=== PATIENT | female | born 1990 | race Two or more races ===

== ENCOUNTER 2016-03-13 11:53 | Inpatient (IN) | payer MEDICAID ==
[2016-03-13] MEDS ORDERED: Sodium Chloride 0.9% 10 ML ONE (12:28)
[2016-03-13 13:25] LABS: HEMOGLOBIN 12.6 gm/l (12.0-16.0); MEAN CELL VOLUME 91.6 fl (81.0-99.0); MEAN CORPUSCULAR HEMOGLOBIN 30.4 pg (27.0-31.0); MEAN CORPUSCULAR HGB CONC 33.2 g/dl (33.0-37.0); RED CELL DISTRIBUTION WIDTH 13.3 % (11.5-14.5)
[2016-03-13] MEDS ORDERED: DINOPROSTONE 10 MG SUP VG ONE (13:28)
[2016-03-13] MEDS ORDERED: MINERAL OIL 25 ML BOT ONE (13:31)
[2016-03-13] MEDS ORDERED: OXYTOCIN 10 UNITS/ML VIAL ONE (13:31)
[2016-03-13] MEDS ORDERED: LIDOCAINE Viscous 2% 15 ML UDCUP ONE (13:31)
[2016-03-13] MEDS ORDERED: LIDOCAINE 1% (PRES FREE) 30 ML VIAL ONE (13:31)
[2016-03-13] MEDS ORDERED: IV START KIT ONE (13:32)
[2016-03-13] MEDS ORDERED: OXYTOCIN IN LR 500 ML IV ONE (13:32)
[2016-03-13] MEDS ORDERED: LACTATED RINGERS 1,000 ML ONE (13:32)
[2016-03-13] MEDS ORDERED: PUMP TUBING ONE (13:32)
[2016-03-13 13:33] LABS: ALB/GLOB RATIO 1.1 (>1.0); ALBUMIN 3.5 gm/dL (3.5-5.7); CALCIUM 9.2 mg/dL (8.6-10.3)
--- NOTE | 2016-03-13 13:43 | PCMAN ---
OB Admission Note - History : 1 Term: 0 Livin EDC:: 03/15/16 Gestational Age (weeks): 39 Days (#/7): 5 Admit Cervical Dilation:: 0 Admit Cervical Effacement (%):: 0 Admit Station:: -3 Admit Presentaton:: vertex Membrane Status: Intact Contractions: No Heart Rate:: 140 (mod grzegorz/+accels/no decels) Status:: 1 EFW:: 7# Summary of Course:: course c/b measured size <dates at 36w, normal growth scan. Then noted to have elevated DBP at 37w and then elevated SBP/DBP today in clinic. Pt was sent over for IOL 2/2 gHTN. Pt denies AHN, vision changes, epigastric pain, or increased swelling. He had neg protein in urine at clinic. PIH labs pending, protein/cr ratio also pending. Dating Hx: LMP 06/09/15, ISSAC 03/15/15 u/s 10/28/18 19w2d, ISSAC 03/22/16, normal anatomy scan, anterior placenta/no previa u/s 02/29/16 36w3d, ISSAC 03/25/16, normal growth scan, EFW 60th percentile, JADIEL WNL Med Hx: None SHx: denies x 3 - Labs Blood Type: A (+) positive Rubella Status: Immune GBS Status: Negative Abnormal Labs: None - Review of Systems Denies AHN, vision changes, epigastric pain, swelling. Good FM, no VB, LOF, ctx - Physical Exam General: Afebrile Psych/Mental Status: Mood/Affect Appropriate, Judgment/Insight Intact Neurological: Grossly Intact, Alert HEENT: Atraumatic, EOMI Lungs: Clear to Auscultation Bilaterally, Normal Air Movement Cardiovascular: Regular Rate and Rhythm, Normal S1, Normal S2, No Murmur DTR: Patellar (L): 2+ (Brisk, Normal), Patellar (R): 2+ (Brisk, Normal) Skin: Normal Color - Problems (1) Gestational hypertension Status: Acute Code: O13.9 Assessment/Plan: 25 yo @ 39w5d, sent from clinic for IOL for gHTN. 1. Labor gHTN: BP of 154/92, 151/92 in clinic, neg proteinuria. Pt denies PIH sx. Discussed IOL with pt. Cervix was closed/long this morning in clinic. Not rechecked here, will start induction with cervidil. Reviewed sx/signs of PreE with pt who will notify her RN should any of these sx/signs occur. PIH labs drawn and pending. 2. FWB: Cat 1 3. Pain: could prefer unmedicated delivery 4. GBS neg 5. PP contraception: nexplanon 6. Peds: [facility])
[2016-03-13 14:54] LABS: CREATININE,RANDOM URINE 32 mg/dL
[2016-03-13 15:03] VITALS: BMI 32.9
--- NOTE | 2016-03-13 21:44 | PDOC36 ---
Provider Note Subject: S: Pt comfortable per RN. Had rated contractions 5/10, but now appears more comfortable. Pt denies PreE sx. O: 124-151/77-85, P 86, R 16 FHT strip reviewed: baseline 135bpm, no decels, +accels [place]: irregular, q2-5min SVE: deferred. A/P: 25 yo @ 39w5d, IOL for gHTN 1. IOL: cervidil in at 1340, plan to remove at 0140, unless any other indication prior. Will likely continue with cervical ripening with misoprostol. 2. gHTN: one mild range BP @ 1920, immediately after ambulating. Reviewed preE labs: Plt 207, AST 15, Cr 0.5, Pr/Cr: 0.16. Asx. CTM. 3. FWB: Cat 1 4. Pain: pt comfortable, not requesting medication 5. GBS neg
[2016-03-14] MEDS ORDERED: EPIDURAL PROCEDURE TRAY ONE (01:57)
[2016-03-14] MEDS ORDERED: MISOPROSTOL 25 MCG TABLET PO SCH (02:00)
[2016-03-14] MEDS ORDERED: OXYTOCIN IN LR 500 ML IV PRN (10:32)
[2016-03-14] MEDS ORDERED: LACTATED RINGERS 1,000 ML IV SCH (10:45)
--- NOTE | 2016-03-14 10:58 | PDOC36 ---
Provider Note Subject: Assumed care of pt this am at 0700. H&P reviewed. Labs reviewed. Discussed clearly reasons for IOL with patient and . Reviewed hosp course thus far with pt and RN including admission, cervidil placement and cytotec X 1. Pt. has no uc's at this time but did have some last pm with cervidil. Pt. very anxious and uncomfortable with vaginal exams in clinic and here as well. She was told by provider that she has a narrow vagina and that is why it hurts with her exams. Pt. did not tolerate well the cervidil in place with increased vaginal pain/tenderness so cytotec was given orally in the am. Currently, no AHN, vis changes, RUQ pain, new swelling. Exam performed, cervix 1/50/-3 and soft. Cat 1 FHT's previously and now. Uc's every 3-5 min and not felt. DIscussed thoroughly options for IOL including but not limited to mechanical, pit, cytotec dosing. Pt. had vomiting with cytotec and severe discomfort with vaginal exams. Given options, will try low dose pit to see if established contraction pattern will help with cervical ripening. IF after 4 hours or so, pt. not responding to pit with regular pattern and cervical change, will stop pit and re evaluate for other options. BP's stable, pro/cr wnl.
--- NOTE | 2016-03-14 17:16 | PDOC36 ---
Provider Note Subject: Late entry: Re evaluated pt about 3pm. No change in cervix but good uc's with pit at 5mu. Mildly more painful as well. Will continue ripening with low dose pit until evening then recheck. Plan to stop pit if no change, eat/shower if desire then re evaluate. Cat 1 FHT's and uc's every 3-5 min at time of evaluation. VSSAF, no s/s of pre eclampsia.
[2016-03-14] MEDS ORDERED: LIDOCAINE Viscous 2% 15 ML UDCUP ONE (20:47)
[2016-03-14 22:35] LABS: BASO % 0.3 % (0.2-1.0); EOS % 0.4 % (0.9-2.9); HEMATOCRIT 37.7 % (37.0-47.0); HEMOGLOBIN 12.4 gm/l (12.0-16.0); IMM NEUT% 0.1 % (0-1); LYMPH # 1.5 (1.0-4.8); LYMPH % 21.1 % (15-45); MEAN CELL VOLUME 90.8 fl (81.0-99.0); MEAN CORPUSCULAR HEMOGLOBIN 29.9 pg (27.0-31.0); MEAN CORPUSCULAR HGB CONC 32.9 g/dl (33.0-37.0); MEAN PLATELET VOLUME 11.8 fl (7.4-10.4); MONO # 0.6 (0.0-0.8); MONO % 8.7 % (4-12); NEUT % 69.4 % (43-75); PLATELET COUNT 222 K/mm3 (130-400); RED CELL DISTRIBUTION WIDTH 13.8 % (11.5-14.5)
[2016-03-14 22:46] LABS: ALBUMIN 3.3 gm/dL (3.5-5.7); URIC ACID 6.7 mg/dL (2.3-7.6)
[2016-03-14 22:53] LABS: CREATININE,RANDOM URINE 254 mg/dL
--- NOTE | 2016-03-14 23:29 | PDOC39B ---
Hospital Course: ADMIT DATE: 03/13/16 DISCHARGE DATE: 03/14/16 Undelivered ADMISSION DIAGNOSES: term iup, gestational hypertension PROCEDURES: iol-failed HISTORY OF PRESENT ILLNESS: 25 year old G1 T0 L0 at 39 weeks 5 days presenting with gestational hypertension and for IOL. HOSPITAL COURSE: The patient presented for iOL secondary to gest hypertension. All labs were wnl. BP's on admission initially elevated then normalized in the hospital. One or two slightly elevated with ambulation but others wnl. Pt. was given cervidil, cytotec X 1 then Pit. She had no cervical change, she is still 50/-3. Pit was attempted at low dose as patient did not tolerate vaginal exams. No gutierrez, vis changes, ruq pain or new swelling. Repeat PIH labs all wnl as well. DC bp 120/70's. Discussed at length, reason for IOL, gestational htn and normal labs which were repeated and normal. Pt. had a lot of difficulty with vaginal exams as well and was hoping for spontaneous labor. Offered option of sleeping tonight then IOL tomorrow, home with IOL in 2 days. Pt. would like to go home for 48 hours then return. Discussed s/s of pre eclampsia, she can rest at home. TO return for any symptoms. Pt and in agreement. - Physical Exam General: Afebrile, No Acute Distress Psych/Mental Status: Mood/Affect Appropriate Lungs: Clear to Auscultation Bilaterally Cardiovascular: Regular Rate and Rhythm, No Murmur Fundus: Firm, Other (non tender) Genitourinary: Normal Female Genitalia, No Edema Extremities: No Edema Deep Tendon Reflexes: Bicep (L): 1+ (Slightly diminished), Bicep (R): 1+ ( Slightly diminished), Patellar (L): 1+ (Slightly diminished), Patellar (R): 1+ ( Slightly diminished) Skin: Warm, Dry, No Rash - Discharge Plan Condition: Good Disposition: Home
== END 2016-03-14 23:47 | disposition home or self-care (01) | DRG 782 ==
LOC: FBC 11:53 → EDSTATUS 03-15 11:51
PROVIDERS: ADMIT Family Medicine; ATTEND Family Medicine
PROC: 3E0P7GC Introduction of Other Therapeutic Substance into Female Reproductive, Via Natural or Artificial Opening (ICD-10-PCS; principal; 2016-03-13)
DX: O13.4 Gestational [pregnancy-induced] hypertension without significant proteinuria, complicating childbirth (principal); O61.0 Failed medical induction of labor; Z3A.39 39 weeks gestation of pregnancy

== ENCOUNTER 2016-03-17 07:53 | Outpatient (CLI) | payer MEDICAID ==
[2016-03-17 08:46] VITALS: BMI 32.1
[2016-03-17 09:13] LABS: HEMATOCRIT 36.6 % (37.0-47.0); HEMOGLOBIN 12.2 gm/l (12.0-16.0); MEAN CELL VOLUME 91.5 fl (81.0-99.0); MEAN CORPUSCULAR HEMOGLOBIN 30.5 pg (27.0-31.0); MEAN CORPUSCULAR HGB CONC 33.3 g/dl (33.0-37.0); RED CELL DISTRIBUTION WIDTH 13.3 % (11.5-14.5)
[2016-03-17 09:23] LABS: CREATININE,RANDOM URINE 25 mg/dL
[2016-03-17 09:33] LABS: ALBUMIN 3.2 gm/dL (3.5-5.7); CALCIUM 8.8 mg/dL (8.6-10.3)
== END 2016-03-17 10:47 | disposition home or self-care (01) ==
LOC: SUATTDRO 07:53 → FBCOUT 07:53 → FBC 07:58 → FBCOUT 10:47
PROVIDERS: ATTEND Family Medicine
DX: O26.899 Other specified pregnancy related conditions, unspecified trimester (principal); R03.0 Elevated blood-pressure reading, without diagnosis of hypertension; Z3A.00 Weeks of gestation of pregnancy not specified
CPT/HCPCS: 85027; 80053; 84156; 59025; 81002; G0463

== ENCOUNTER 2016-03-17 13:52 | Inpatient (IN) | payer MEDICAID ==
[2016-03-17 19:50] VITALS: BMI 32.9
[2016-03-17] MEDS ORDERED: SODIUM CHLORIDE 0.9% FLUSH 20 ML ONE (19:53)
[2016-03-17] MEDS ORDERED: LIDOCAINE 1% (PRES FREE) 30 ML VIAL ONE (19:54)
[2016-03-17] MEDS ORDERED: LACTATED RINGERS 1,000 ML ONE (19:54)
[2016-03-17] MEDS ORDERED: OXYTOCIN 10 UNITS/ML VIAL ONE (19:54)
[2016-03-17] MEDS ORDERED: IV START KIT ONE (19:54)
[2016-03-17] MEDS ORDERED: MINERAL OIL 25 ML BOT ONE (19:54)
[2016-03-17] MEDS ORDERED: PUMP TUBING ONE (19:55)
[2016-03-17] MEDS ORDERED: OXYTOCIN IN LR 500 ML IV ONE ×2 (19:55→20:08)
[2016-03-17] MEDS ORDERED: LIDOCAINE Viscous 2% 15 ML UDCUP ONE (19:55)
[2016-03-17] MEDS ORDERED: DINOPROSTONE 10 MG SUP VG ONE (20:18)
[2016-03-17 20:23] LABS: HEMATOCRIT 35.1 % (37.0-47.0); HEMOGLOBIN 11.8 gm/l (12.0-16.0); MEAN CELL VOLUME 91.6 fl (81.0-99.0); MEAN CORPUSCULAR HEMOGLOBIN 30.8 pg (27.0-31.0); MEAN CORPUSCULAR HGB CONC 33.6 g/dl (33.0-37.0); RED CELL DISTRIBUTION WIDTH 13.4 % (11.5-14.5)
--- NOTE | 2016-03-17 21:20 | PCMAN ---
OB Admission Note - History : 1 Term: 0 : 0 Abortions (S&E): 0 Livin Gestational Age (weeks): 40 Days (#/7): 2 Admit Cervical Dilation:: 2 Admit Cervical Effacement (%):: 50 Admit Station:: -3 Admit Presentaton:: vertex Membrane Status: Intact Contractions: No Heart Rate:: 130 (mod grzegorz/+accels/no decels) Status:: Cat 1 EFW:: 7# Summary of Course:: course c/b measured size <dates at 36w, normal growth scan. She was noted to have elevated DBP at 37w and then elevated SBP/DBP @ 39w5d in clinic. Pt was sent over to [facility] on 03/13/16 for IOL 2/ gHTN. She was admitted, given cervidil overnight. She had minimal cervical change after cytotec and low dose pitocin. She was normotensive on HOD#1. She was given the option of resting and restarting IOL the subsequent day or discharge home x48h. Pt opted to be discharged home. She returned to [facility] this morning for IOL, but given bed/staff availability her induction was delayed until this evening. Pt denies AHN, vision changes, epigastric pain, or increased swelling. Her PreE labs have been normal. Dating Hx: LMP 06/09/15, ISSAC 03/15/15 u/s 10/28/18 19w2d, ISSAC 03/22/16, normal anatomy scan, anterior placenta/no previa u/s 02/29/16 36w3d, ISSAC 03/25/16, normal growth scan, EFW 60th percentile, JADIEL WNL Med Hx: None SHx: denies x 3 - Labs Blood Type: A (+) positive Rubella Status: Immune GBS Status: Negative Abnormal Labs: None Other Labs:: Laboratory Last Values WBC 6.7 K/mm3 (4.0-10.5) 03/17/16 20:05 RBC 3.83 M/mm3 (4.20-5.40) L 03/17/16 20:05 Hgb 11.8 gm/l (12.0-16.0) L 03/17/16 20:05 Hct 35.1 % (37.0-47.0) L 03/17/16 20:05 MCV 91.6 fl (81.0-99.0) 03/17/16 20:05 MCH 30.8 pg (27.0-31.0) 03/17/16 20:05 MCHC 33.6 g/dl (33.0-37.0) 03/17/16 20:05 RDW 13.4 % (11.5-14.5) 03/17/16 20:05 Plt Count 207 K/mm3 (130-400) 03/17/16 20:05 03/17/16 @ 9am AST: 15 Cr: 0.6 Pr/Cr: 0.16 - Review of Systems Denies AHN, blurry vision, epigastric pain, increased edema Good FM, no LOF, VB, ctx - Physical Exam General: Afebrile Psych/Mental Status: Mood/Affect Appropriate, Judgment/Insight Intact Neurological: Grossly Intact, Alert HEENT: Atraumatic, EOMI Lungs: Clear to Auscultation Bilaterally, Normal Air Movement Cardiovascular: Regular Rate and Rhythm, Normal S1, Normal S2, No Murmur Abdomen: Normal Bowel Sounds Extremities: No Edema, No Tenderness DTR: Bicep (L): 2+ (Brisk, Normal), Bicep (R): 2+ (Brisk, Normal), Patellar (L) : 2+ (Brisk, Normal), Patellar (R): 2+ (Brisk, Normal) - Problems (1) Gestational hypertension Status: Acute Code: O13.9 Assessment/Plan: 25 yo @ 40w2d, IOL for gHTN. 1. Labor: SVE 2/5/H, posterior. Singh score of 3. Cervical ripening with cervidil, placed at 2039. 2. gHTN: dx based on 2 mild range BPs >6h apart last week (in clinic and while admitted last week). Pt is normotensive today, no proteinuria, preE labs normal. 3. FWB: Cat 1 4. Pain: prefers natural, although with very difficult cervical checks, epidural analgesia may be very helpful 5. GBS neg 6. BCM: nexplanon 7. Peds: [facility] ([place])
[2016-03-17] MEDS ORDERED: ZOLPIDEM TARTRATE 5 MG TABLET PO PRN (21:52)
[2016-03-18] MEDS ORDERED: FENTANYL 100 MCG/2 ML VIAL ONE (07:33)
[2016-03-18] MEDS: FENTANYL 100 MCG/2 ML VIAL IV ONE ×2 (07:39→09:27)
[2016-03-18] MEDS ORDERED: LACTATED RINGERS 1,000 ML IV SCH (08:15)
--- NOTE | 2016-03-18 08:16 | PDOC36 ---
Provider Note Subject: feeling a lot of vaginal burning, some cramping O: vss af no elevated blood pressures FHT's:150 mod stv/ltv no decels pos. accels toco: q 4 min sve: 3-4/70/-1 A/P: postdates IOL for gestational HTN at 40 3/7 weeks, normal bp here s/p cervidil start Pitocin FWB overall reassuring, cat I
[2016-03-18] MEDS: OXYTOCIN IN LR 500 ML IV PRN ×2 (08:47→16:10)
[2016-03-18] MEDS ORDERED: FENTANYL 100 MCG/2 ML VIAL IV ONE (09:28)
[2016-03-18] MEDS ORDERED: ONDANSETRON 4 MG/2ML 2 ML VIAL ONE (09:31)
[2016-03-18] MEDS ORDERED: ONDANSETRON 4 MG/2ML 2 ML VIAL IV ONE (09:33)
[2016-03-18] MEDS ORDERED: EPIDURAL PUMP SET ONE (10:23)
[2016-03-18] MEDS ORDERED: FENTANYL/ROPIVACAINE EPIDURAL 250 ML EP ONE (10:23)
--- NOTE | 2016-03-18 10:26 | PDOC36 ---
Provider Note Subject: uncomfortable Note: vss af no elevated BP FHT"s: 150 mod stv/ltv, no decels toco: q 2-3 SVE: 4-5/80/-1 arom clear, IUPC placed A/P: IUP at 40 3/7 weeks IOL for gestational HTN, although BP wnl here s/p cervidil, now on Pitocin, s/p AROM FWB overall reassuring cat [address]
[2016-03-18] MEDS ORDERED: EPHEDRINE SULFATE 50 MG/ML 1ML VIAL IV PRN (10:41)
[2016-03-18] MEDS ORDERED: ONDANSETRON 4 MG/2ML 2 ML VIAL IV PRN (10:41)
[2016-03-18] MEDS ORDERED: SODIUM CHLORIDE 0.9% 500 ML IV PRN (10:41)
[2016-03-18] MEDS ORDERED: NALOXONE HCL 0.4 MG/ML VIAL IV PRN (10:41)
[2016-03-18] MEDS ORDERED: NALBUPHINE HCL 20 MG/ML AMP IV PRN (10:41)
[2016-03-18] MEDS ORDERED: DIPHENHYDRAMINE HCL 50 MG/1 ML VIAL IV PRN (10:41)
[2016-03-18] MEDS ORDERED: METOCLOPRAMIDE HCL 5 MG/ML 2ML VIAL IV PRN (10:41)
[2016-03-18] MEDS: LACTATED RINGERS 500 ML IV PRN ×2 (11:00→13:09)
[2016-03-18] MEDS ORDERED: BUPIVACAINE 0.25% (PRES FREE) 30 ML VIAL ONE (11:34)
[2016-03-18] MEDS ORDERED: FENTANYL/ROPIVACAINE EPIDURAL 250 ML EP SCH (11:48)
[2016-03-18] MEDS ORDERED: LIDOCAINE 1% (PRES FREE) 30 ML VIAL SUB-Q ONE (17:11)
[2016-03-18] MEDS ORDERED: LANOLIN 50 APPLIC/7G TUBE TP PRN (17:13)
[2016-03-18] MEDS ORDERED: BENZOCAINE/MENTHOL 60 APPLIC/BOT TP PRN (17:13)
[2016-03-18] MEDS ORDERED: LACTATED RINGERS 1,000 ML IV PRN (17:13)
[2016-03-18] MEDS ORDERED: MINERAL OIL 25 ML BOT TP ONE (17:14)
--- NOTE | 2016-03-18 17:19 | PCMDEL ---
Delivery Note - Labor 1st stage (hr/min):: 4 hours 37 min 2nd stage (hr/min):: 3 hours 3rd stage (hr/min):: 4 min Total (hr/min):: 4 hours and 44 min Pushed (hr/min):: 3 hours - Delivery Delivery (Date): 03/18/16 Delivery (Time): 16:35 Gender: Female Presentation: Cephalic Umbilical Cord: 3 Vessel Delayed Cord Clamping:: > 3 min 1 Minute Total: 9 5 Minute Total: 9 Placenta:: normal EBL:: 700 Perineum:: 2 nd degree perineal lac, and bilateral sulcal lacs Suture:: 3.0 vicryl times 3 Anesthesia/Meds:: epidural and lidocaine 1% Length ROM:: 7 hours 35 min Comments:: vigorous female, mild atony responded to massage and pitocin
[2016-03-18] MEDS ORDERED: IV START KIT ONE (17:52)
[2016-03-18] MEDS ORDERED: SODIUM CHLORIDE 0.9% FLUSH 10 ML ONE (17:53)
[2016-03-18] MEDS ORDERED: LACTATED RINGERS 1,000 ML ONE (17:53)
[2016-03-18] MEDS: LACTATED RINGERS 1,000 ML IV SCH ×2 (20:12→20:14)
[2016-03-19] MEDS ORDERED: METHYLERGONOVINE MALEATE 0.2 MG/ML 1ML AMP ONE (08:00)
[2016-03-19] MEDS: IBUPROFEN 800 MG TABLET PO PRN (09:06)
[2016-03-19] MEDS: OXYCODONE/ACETAMINOPHEN 5/325 MG TABLET PO PRN (13:47)
[2016-03-19] MEDS: DOCUSATE SODIUM 100 MG CAPSULE PO PRN (13:48)
--- NOTE | 2016-03-19 20:27 | PDOC44 ---
- Subjective Day: 1 Reports Pain Tolerable - Objective Temp Pulse Resp BP Pulse Ox 98.6 F 81 18 109/58 03/19/16 09:01 03/19/16 09:01 03/19/16 09:01 03/19/16 09:01 Lab Results 03/19/16 06:05 Hgb 9.0 L D Hct 27.0 L Current Medications Generic Name Dose Route Start Last Admin Trade Name Freq PRN Reason Stop Dose Admin Benzocaine/Menthol 1 applic 03/18/16 17:13 Dermoplast TP PRN PRN Patient Comfort Docusate Sodium 100 mg 03/18/16 17:13 Colace PO DAILY PRN Comfort Emollient Ointment 1 applic 03/18/16 17:13 Ekm-O-Lowbqi TP PRN PRN sore nipples Ropivacaine/Fentanyl/NS 250 mls @ 0 mls/hr 03/18/16 11:48 Fentanyl 2 Mcg/Ml + Ropivacaine 0.125% Ep Bag EP EPI DIANELYS Protocol Per Protocol Ibuprofen 800 mg 03/18/16 17:13 03/19/16 09:06 Motrin PO 800 mg Q6H PRN Administration Pain (Mild) Oxycodone/Acetaminophen 1 - 2 tab 03/18/16 17:13 Percocet 5/325 PO Q4H PRN Pain (Moderate) Sodium Chloride 10 ml 03/19/16 17:00 Normal Saline 10ml Flush IV Q8HR [facility] Sodium Chloride 10 ml 03/19/16 09:45 Normal Saline 10ml Flush IV PRN PRN - Physical Exam General: Afebrile Psych/Mental Status: Mood/Affect Appropriate, Judgment/Insight Intact, Bonding Well Neurological: Grossly Intact, Alert, Oriented x 4 Lungs: Clear to Auscultation Bilaterally Cardiovascular: Regular Rate and Rhythm Fundus: Firm, Below Umbilicus - Problems:Assessment/Plan (1) Vaginal delivery Status: Acute Assessment/Plan: Doing well Normal exam Banking breast milk, will write for a breast pump Had a laceration repair - send home with some [place] or percocet Continue routine care (2) Acute post-hemorrhagic anemia Status: Acute Assessment/Plan: Hgb 9.0 - start ferrous sufate bid
[2016-03-19] MEDS: FERROUS SULFATE (65 Fe) 325 MG TABLET PO SCH (21:18)
[2016-03-20] MEDS: OXYCODONE/ACETAMINOPHEN 5/325 MG TABLET PO PRN (08:03)
[2016-03-20] MEDS: DOCUSATE SODIUM 100 MG CAPSULE PO PRN (08:04)
[2016-03-20] MEDS: IBUPROFEN 800 MG TABLET PO PRN (08:04)
[2016-03-20] MEDS: FERROUS SULFATE (65 Fe) 325 MG TABLET PO SCH (08:04)
[2016-03-20 08:10] VITALS: BP 125/66
--- NOTE | 2016-03-20 08:51 | PDOC39B ---
Hospital Course: ADMIT DATE: 03/17/16 DISCHARGE DATE: 03/20/16 ADMISSION DIAGNOSES: IUP at 40 3/7 Gestational HTN PROCEDURES: IOL HISTORY OF PRESENT ILLNESS: 25 year old G1 T0 L0 at 40 weeks 3 days presenting from clinic for IOL for elevated BP's not in setting of preeclampsia. HOSPITAL COURSE: The patient underwent IOL with cervidil and then transitioned to pitocin. She progressed on normal labor curve to deliver via By day of discharge the patient is ambulating, eating, voiding, and passing flatus without difficulty. Pain is controlled and lochia is appropriate. She is breast feeding with support from . THey have good plan in place. Mood great. - Physical Exam Vital Signs: Temp Pulse Resp BP Pulse Ox 97.4 F 86 16 125/66 03/20/16 08:06 03/20/16 08:06 03/20/16 08:06 03/20/16 08:06 General: Afebrile, No Acute Distress Neurological: Alert, Oriented x 4 Lungs: Clear to Auscultation Bilaterally Cardiovascular: Regular Rate and Rhythm Fundus: Firm, Midline Extremities: Full ROM, No Edema Skin: Normal Color, Warm, Dry, Intact, No Rash - Discharge Diagnosis (1) Acute post-hemorrhagic anemia Status: AcuteAssessment/Plan: Hgb 9.0 - start ferrous sufate bid. Sent randall francesco this. (2) Vaginal delivery Status: AcuteAssessment/Plan: Doing well Normal exam Routine care (3) Gestational hypertension Status: AcuteAssessment/Plan: BP stable post - Discharge Plan Condition: Good Disposition: Home Prescriptions: Docusate Sodium [COLACE 100 MG CAPSULE (SHF)] 100 mg PO DAILY PRN #60 capsule PRN Reason: Comfort Ibuprofen [IBUPROFEN 800 MG TABLET (SHF)] 800 mg PO Q6H PRN #60 tablet PRN Reason: Pain (Mild) FERROUS SULFATE (65 Fe) [IRON FERROUS SULFATE 325 MG TABLET (SHF)] 325 mg PO BID #60 tablet Lanolin [LANOLIN 7 G TUBE (SHF)] 1 applic TP PRN PRN #10 tube PRN Reason: Sore Nipples Follow-Up: Debra Hamlin PA-C [Primary Care Provider] -
== END 2016-03-20 13:29 | disposition home or self-care (01) | DRG 775 ==
LOC: FBC 18:55
PROVIDERS: ADMIT Family Medicine; ATTEND Family Medicine
PROC: 3E0P7GC Introduction of Other Therapeutic Substance into Female Reproductive, Via Natural or Artificial Opening (ICD-10-PCS; 2016-03-17)
PROC: 10E0XZZ Delivery of Products of Conception, External Approach (ICD-10-PCS; principal; 2016-03-18)
PROC: 0KQM0ZZ Repair Perineum Muscle, Open Approach (ICD-10-PCS; 2016-03-18)
DX: O13.4 Gestational [pregnancy-induced] hypertension without significant proteinuria, complicating childbirth (principal); D62 Acute posthemorrhagic anemia; O70.1 Second degree perineal laceration during delivery; O99.02 Anemia complicating childbirth; Z37.0 Single live birth; Z3A.40 40 weeks gestation of pregnancy

== ENCOUNTER 2016-03-21 09:01 | Outpatient (CLI) | payer MEDICAID | END 2016-03-21 09:02 | disposition home or self-care (01) | LOC: BABIESSH 09:01 | PROVIDERS: ATTEND Family Medicine | DX: Z39.1 Encounter for care and examination of lactating mother (principal) ==

== ENCOUNTER 2016-03-28 09:57 | Outpatient (CLI) | payer MEDICAID | END 2016-03-28 09:58 | disposition home or self-care (01) | LOC: BABIESSH 09:57 | PROVIDERS: ATTEND Family Medicine | DX: Z39.1 Encounter for care and examination of lactating mother (principal) ==